=== PATIENT | female | born 1950 | race Caucasian/White ===

== ENCOUNTER 2016-09-08 13:06 | Emergency (ER) | payer MEDICARE ==
--- NOTE | 2016-09-08 13:49 | ERPHSYRPT ---
- History of Present Illness Time Seen by Provider: 09/08/16 13:44 Source: patient Exam Limitations: no limitations Patient Subjective Stated Complaint: pt co pain to right wrist for 3 days, pt denies any injury to wrist, has taken tylenol, she states she is on her computer a lot. is on computer for 2-3 hours a week Triage Nursing Assessment: pt walked in, alert and in no distress, resp easy, no swelling to right wrist, able to move wrist and fingers well, no swelling Physician History: The patient is a 65-year-old female who is right-handed complaining of right wrist discomfort for about one week. She is unsure she fell a week ago. She uses her computer a lot. She denies numbness or tingling. Occurred: last week Method of Injury: unknown Quality: aching Severity of Pain-Max: mild Severity of Pain-Current: mild Extremities Pain Location: wrist: right Modifying Factors: Improves With: pain medication Associated Symptoms: none Allergies/Adverse Reactions: Sulfa (Sulfonamide Antibiotics) Allergy (Verified 09/08/16 13:21) Home Medications: Aspirin [Aspir-Low] 81 mg DAILY 09/08/16 [History] Atenolol 50 mg [Tenormin 50 mg] 50 mg DAILY 09/08/16 [History] Lisinopril 5 mg DAILY 09/08/16 [History] Potassium Chloride 20 Meq [Klor-Con 20 MEQ] 20 meq DAILY 09/08/16 [History] Hx Influenza Vaccination/Date Given: No Hx Pneumococcal Vaccination/Date Given: No Immunizations Up to Date: Yes - Review of Systems Constitutional: No Fever, No Chills Eyes: No Symptoms Ears, Nose, & Throat: No Symptoms Respiratory: No Cough, No Dyspnea Cardiac: No Chest Pain, No Edema, No Syncope Abdominal/Gastrointestinal: No Abdominal Pain, No Nausea, No Vomiting, No Diarrhea Genitourinary Symptoms: No Dysuria Musculoskeletal: Joint Pain Skin: No Rash Neurological: No Dizziness, No Focal Weakness, No Sensory Changes Psychological: No Symptoms Endocrine: No Symptoms Hematologic/Lymphatic: No Symptoms Immunological/Allergic: No Symptoms All Other Systems: Reviewed and Negative - Past Medical History Pertinent Past Medical History: Yes Cardiac History: Congenital Heart Disease, Hypertension Respiratory History: Bronchitis, COPD Endocrine Medical History: Diabetes Type II - Past Surgical History Past Surgical History: Yes Gastrointestinal: Cholecystectomy Female Surgical History: Hysterectomy Other Surgical History: syst removed from back - Social History Smoking Status: Current every day smoker Exposure to second hand smoke: Yes Drug Use: none Patient Lives Alone: No - Female History Hx Last Menstrual Period: post - Nursing Vital Signs Nursing Vital Signs: Initial Vital Signs Temperature 97.3 F Temperature Source Oral Pulse Rate 72 Respiratory Rate 16 Blood Pressure [Left Arm] 130/77 Pain Intensity 8 - Physical Exam General Appearance: alert Eyes, Ears, Nose, Throat Exam: moist mucous membranes Neck Exam: non-tender, supple Cardiovascular/Respiratory Exam: chest non-tender, normal breath sounds, regular rate/rhythm, no respiratory distress Abdominal Exam: non-tender, No guarding Back Exam: normal inspection, No vertebral tenderness Shoulder Exam: normal inspection Elbow/Forearm Exam: normal inspection, limited ROM, soft tissue tenderness Hand Exam: normal inspection Neuro/Tendon Exam: normal sensation, normal motor functions Mental Status Exam: alert, oriented x 3, cooperative Skin Exam: normal color, warm, dry SpO2 Interpretation: normal SpO2: 97 Oxygen Delivery: Room Air - Radiology Exams Right Wrist X-ray Interpretation: Teleradiologist Report (rotatory subluxed scaphoid per Dr Simmons.) Ordered Tests: Active Orders 24 hr Category Date Time Status WRIST (MIN 3 VIEWS) Stat Exams 09/08/16 13:25 Completed - Progress Progress: unchanged Counseled pt/family regarding: need for follow-up, rad results - Departure Time of Disposition: 14:12 Departure Disposition: Home Clinical Impression: Rotary subluxation of scaphoid Condition: Stable Critical Care Time: No Additional Instructions: You have a possible injury to a ligament in your right wrist. Wear the [place] wrap and follow up with your PMD in 2 to 3 days. Take naproxen 500 mg twice a day as needed. Prescriptions: Naproxen 500 mg PO BID PRN #30 tablet.
--- NOTE | 2016-09-08 13:52 | XRAY ---
Indication: Pain for 3 days. No known injury. Comparison: None 3 views of the right wrist demonstrates slight widened scapholunate articulation commonly seen with rotatory subluxed scaphoid. No other bony, articular, or soft tissue abnormalities.
[2016-09-08 14:32] VITALS: BP 115/63; PULSE 68; O2SAT 98
== END 2016-09-08 14:32 | disposition home or self-care (01) ==
LOC: ED 13:06
DX: S63.091A Other subluxation of right wrist and hand, initial encounter (principal)
CPT/HCPCS: 73110; 99283

== ENCOUNTER 2020-12-18 21:16 | Emergency (ER) | payer MEDICARE ==
[2020-12-18 21:58] LABS: Absolute Neutrophil Ct (ANC) 6.68 (1.4-6.9); BASOPHIL % 0.2 % (0.0-0.4); Basophil (Absolute #) 0.02 (0-0.4); Eosinophil % 2.9 % (0.00-5.0); Hemoglobin 14.2 gm/dl (12.0-16.0); Lymphocyte (Absolute #) 2.51 (1.0-4.6); Lymphocytes % 24.4 % (24.0-44.0); Mean Cell Volume 93.4 fl (78-100); Mean Corpuscular Hemoglobin 29.5 pg (26-32); Mean Corpuscular Hgb Concent. 31.6 g/dl (32-36); Mean Platelet Volume 12.2 fl (7.5-11.0); Monocyte (Absolute #) 0.79 (0.0-1.3); Monocytes % 7.7 % (0.0-12.0); Neutrophil % 64.8 % (36.0-66.0); Platelet Count 170 K/mm3 (150-450); Red Blood Count 4.82 M/mm3 (4.1-5.4); Red Cell Distribution Width 12.7 % (11.5-14.0); White Blood Count 10.3 K/mm3 (4.0-10.5)
[2020-12-18 22:10] LABS: Appearance SLIGHTLY CLOUDY (CLEAR); Bacteria RARE /HPF (NEGATIVE); Bilirubin NEGATIVE (NEGATIVE); Blood NEGATIVE Ery/ul (0-5); Glucose NEGATIVE (NEGATIVE); Ketones NEGATIVE (NEGATIVE); Leukocyte Esterase NEGATIVE (NEGATIVE); Nitrite NEGATIVE (NEGATIVE); Protein,Urine Dip NEGATIVE (Negative); RBC 0-2 /HPF (0-2); Specific Gravity 1.018 (1.005-1.025); Urobilinogen 4 mg/dL (0-1)
[2020-12-18 22:38] LABS: ALBUMIN 4.7 g/dL (3.5-5.0); ALKALINE PHOSPHATASE 110 U/L (38-126); ANION GAP 11.8 MEQ/L (5-15); BLOOD UREA NITROGEN 21 mg/dL (7-17); CHLORIDE 100 mmol/L (98-107); Calcium 9.5 mg/dL (8.4-10.2); Carbon Dioxide 31 mmol/L (22-30); Creatinine 1 0.58 mg/dL (0.52-1.04); EST GLOMERULAR FILTRATION RATE > 60.0 ML/MIN; Glucose 108 mg/dL (74-106); Potassium 3.6 mmol/L (3.5-5.1); SGOT/AST 33 U/L (14-36); SGPT/ALT 17 U/L (0-35); SODIUM 139 mmol/L (137-145); Total Protein 7.4 g/dL (6.3-8.2)
[2020-12-18 23:21] VITALS: BP 173/61; PULSE 74; O2SAT 99
--- NOTE | 2020-12-18 23:28 | ERPHSYRPT ---
- History of Present Illness Time Seen by Provider: 12/18/20 21:40 Historian: patient Exam Limitations: no limitations Patient Subjective Stated Complaint: pt c/o abd discomfort, states, "my abd on left side is distended and I feel like I have a heartbeat in my belly". Triage Nursing Assessment: pt c/o abd distention to left side and feels like she has a heartbeat in her belly. Abd is slightly distented on Lt side, soft, nontender, bs present x4 quad. Pt had BM earlier today and finished another one around 9pm tonight. Physician History: Patient is a 70-year-old female presents to our ED with complaints of distended left-sided abdominal pain. Patient states that it feels like there is a heartbeat in her stomach. Symptoms started this evening after dinner. Patient states that she believes it is a gas from a chili meal she had prior to arrival. Patient denies carey pain. Patient states is more like a pressure sensation. Patient is a smoker. Patient also advised that she has a history of a "heart" aneurysm. Symptoms are mild in intensity. No specific worsening improving factors. Patient denies chest pain. Patient voices no other complaints concerns at this time. Timing/Duration: today Activities at Onset: none Quality: pressure Abdominal Pain Onset Location: LLQ, flank Pain Radiation: no radiation Severity of Pain-Max: moderate Severity of Pain-Current: mild Modifying Factors: Improves With: nothing Associated Symptoms: denies symptoms, No chest pain, No diaphoresis, No diarrhea, No rash, No shortness of breath, No syncope, No testicular pain, No vomiting, No weakness Previous symptoms: no prior history Allergies/Adverse Reactions: nitrofurantoin [From Macrobid] Allergy (Severe, Verified 12/18/20 21:52) Vomiting Sulfa (Sulfonamide Antibiotics) Allergy (Verified 12/18/20 21:51) Home Medications: Aspirin [Aspir-Low] 81 mg PO DAILY 09/08/16 [History] Potassium Chloride 20 Meq [Klor-Con 20 MEQ] 20 meq PO DAILY 09/08/16 [History] lisinopriL [Lisinopril] 5 mg PO DAILY 09/08/16 [History] Amlodipine Besylate 5 mg PO DAILY 12/18/20 [History] Atorvastatin Calcium 40 mg PO DAILY 12/18/20 [History] Clopidogrel Bisulfate 75 mg [PLAVIX 75 MG Tablet] 75 mg PO DAILY 12/18/20 [History] Ergocalciferol (Vitamin D2) [Vitamin D2] 50,000 unit PO Q7D 12/18/20 [History] Insulin Glargine,Hum.rec.anlog [Touerao Cadyostar] 12 units SQ HS 12/18/20 [History] Insulin Lispro [Humalog Kwikpen U-200] 7 units SQ TID 12/18/20 [History] Hx Tetanus, Diphtheria Vaccination/Date Given: Yes Hx Influenza Vaccination/Date Given: No Hx Pneumococcal Vaccination/Date Given: No Immunizations Up to Date: Yes Travel Risk - International Travel Have you traveled outside of the country in past 3 weeks: No - Coronavirus Screening Are you exhibiting any of the following symptoms?: No Close contact with a COVID-19 positive Pt in past 14-21 Days: No - Vaccine Status Have you recieved a Covid-19 vaccination: No - Review of Systems Constitutional: No Symptoms, No Fever, No Chills Eyes: No Symptoms Ears, Nose, & Throat: No Symptoms Respiratory: No Symptoms, No Cough, No Dyspnea Cardiac: No Symptoms, No Chest Pain, No Edema, No Syncope Abdominal/Gastrointestinal: No Symptoms, No Abdominal Pain, No Nausea, No Vomiting, No Diarrhea Genitourinary Symptoms: No Symptoms, No Dysuria Musculoskeletal: No Symptoms, No Back Pain, No Neck Pain Skin: No Symptoms, No Rash Neurological: No Symptoms, No Dizziness, No Focal Weakness, No Sensory Changes Psychological: No Symptoms Endocrine: No Symptoms Hematologic/Lymphatic: No Symptoms Immunological/Allergic: No Symptoms All Other Systems: Reviewed and Negative - Past Medical History Pertinent Past Medical History: Yes Neurological History: No Pertinent History ENT History: No Pertinent History Cardiac History: Congenital Heart Disease, High Cholesterol, Hypertension Respiratory History: Bronchitis, COPD Endocrine Medical History: Diabetes Type II Musculoskeletal History: Arthritis, Osteoporosis GI Medical History: Diverticulitis, Diverticulosis, Gallbladder Disease History: No Pertinent History Psycho-Social History: Anxiety, Attention Deficit Disorder Female Reproductive Disorders: No Pertinent History - Past Surgical History Past Surgical History: Yes Neuro Surgical History: No Pertinent History Cardiac: CABG, Cardiac Catheterization, Valve Replacement, Other Respiratory: No Pertinent History Gastrointestinal: Cholecystectomy Genitourinary: No Pertinent History Female Surgical History: Hysterectomy Other Surgical History: aortic aneurysm. aortic pericardial heart tissue valve implanted on 12/08/17 size 21mm by [employer] Implanted Device Model [id number] serial #[id number] - Social History Smoking Status: Current every day smoker How long have you smoked: 55 yrs Exposure to second hand smoke: Yes Drug Use: none Patient Lives Alone: No - Female History Hx Now: No - Nursing Vital Signs Nursing Vital Signs: Initial Vital Signs Temperature 98.0 F 12/18/20 21:34 Pulse Rate 76 12/18/20 21:34 Respiratory Rate 18 12/18/20 21:34 Blood Pressure 171/69 12/18/20 21:34 O2 Sat by Pulse Oximetry 98 12/18/20 21:34 Pain Scale Pain Intensity 0 - Physical Exam General Appearance: no apparent distress, alert Eye Exam: PERRL/EOMI, eyes nml inspection Ears, Nose, Throat Exam: normal ENT inspection, pharynx normal, moist mucous membranes Neck Exam: normal inspection, non-tender, supple, full range of motion Respiratory Exam: normal breath sounds, lungs clear, No respiratory distress Cardiovascular Exam: regular rate/rhythm, normal heart sounds Gastrointestinal/Abdomen Exam: soft, No tenderness, No mass, No guarding, No pulsatile mass, No rebound, No hernia, No organomegaly Back Exam: normal inspection, normal range of motion, No CVA tenderness, No vertebral tenderness Extremity Exam: normal inspection, normal range of motion, pelvis stable, other (Equal dorsalis pedis pulses bilaterally.) Neurologic Exam: alert, oriented x 3, cooperative, normal mood/affect, nml cereb ellar function, sensation nml, No motor deficits Skin Exam: normal color, warm, dry Lymphatic Exam: No adenopathy SpO2 Interpretation: normal SpO2: 99 O2 Delivery: Room Air - Course Nursing assessment & vital signs reviewed: Yes EKG Interpreted by Me: RATE, Sinus Rhythm, NORMAL AXIS, NORMAL INTERVALS Ordered Tests: Active Orders 24 hr Category Date Time Status EKG-ER Only STAT Care 12/18/20 21:37 Active IV Insertion STAT Care 12/18/20 21:37 Active CBC W DIFF Stat Lab 12/18/20 21:45 Completed CMP Stat Lab 12/18/20 21:45 Completed TROPONIN Q3H Lab 12/18/20 21:45 Received TROPONIN Q3H Lab 06/23/21 00:45 Ordered TROPONIN Q3H Lab 12/19/20 03:45 Ordered TROPONIN Q3H Lab 12/19/20 06:45 Ordered TROPONIN Q3H Lab 12/19/20 09:45 Ordered UA W/RFX UR CULTURE Stat Lab 12/18/20 22:02 Completed Lab/Rad Data: Laboratory Result Diagrams 12/18/20 21:45 12/18/20 21:45 Laboratory Results 12/18/20 12/18/20 12/18/20 Range/Units 22:02 21:45 21:45 WBC 10.3 (4.0-10.5) K/mm3 RBC 4.82 (4.1-5.4) M/mm3 Hgb 14.2 (12.0-16.0) gm/dl Hct 45.0 (35-47) % MCV 93.4 (78-100) fl MCH 29.5 (26-32) pg MCHC 31.6 L (32-36) g/dl RDW 12.7 (11.5-14.0) % Plt Count 170 (150-450) K/mm3 MPV 12.2 H (7.5-11.0) fl Gran % 64.8 (36.0-66.0) % Eos # (Auto) 0.30 (0-0.5) Absolute Lymphs (auto) 2.51 (1.0-4.6) Absolute Monos (auto) 0.79 (0.0-1.3) Lymphocytes % 24.4 (24.0-44.0) % Monocytes % 7.7 (0.0-12.0) % Eosinophils % 2.9 (0.00-5.0) % Basophils % 0.2 (0.0-0.4) % Absolute Granulocytes 6.68 (1.4-6.9) Basophils # 0.02 (0-0.4) Sodium 139 (137-145) mmol/L Potassium 3.6 (3.5-5.1) mmol/L Chloride 100 (98-107) mmol/L Carbon Dioxide 31 H (22-30) mmol/L Anion Gap 11.8 (5-15) MEQ/L BUN 21 H (7-17) mg/dL Creatinine 0.58 (0.52-1.04) mg/dL Estimated GFR > 60.0 ML/MIN Glucose 108 H (74-106) mg/dL Calcium 9.5 (8.4-10.2) mg/dL Total Bilirubin 1.20 (0.2-1.3) mg/dL AST 33 (14-36) U/L ALT 17 (0-35) U/L Alkaline Phosphatase 110 (38-126) U/L Serum Total Protein 7.4 (6.3-8.2) g/dL Albumin 4.7 (3.5-5.0) g/dL Urine Color YELLOW (YELLOW) Urine Appearance SLIGHTLY CLOUDY (CLEAR) Urine pH 6.0 (5-6) Ur Specific [place] 1.018 (1.005-1.025) Urine Protein NEGATIVE (Negative) Urine Ketones NEGATIVE (NEGATIVE) Urine Blood NEGATIVE (0-5) Paul/ul Urine Nitrite NEGATIVE (NEGATIVE) Urine Bilirubin NEGATIVE (NEGATIVE) Urine Urobilinogen 4 (0-1) mg/dL Ur Leukocyte Esterase NEGATIVE (NEGATIVE) Urine WBC (Auto) 6-10 (0-5) /HPF Urine RBC (Auto) 0-2 (0-2) /HPF U Epithel Cells (Auto) NONE (FEW) /HPF Urine Bacteria (Auto) RARE (NEGATIVE) /HPF Urine Culture Reflexed NO (NO) Urine Glucose NEGATIVE (NEGATIVE) mg/dL - Progress Progress: improved Progress Note: Patient refused CAT scan. Patient states her symptoms improved. Patient reassessed. No active pain. Patient refused CAT scan. Patient is of sound mind. Patient is appropriate to make informed and independent medical decisions. Patient understands that leaving AGAINST MEDICAL ADVICE can result in delayed diagnosis, increased risk of morbidity, mortality, short and long-term disability including . In spite of these risks, patient has decided to leave AGAINST MEDICAL ADVICE. Patient understands that she may return to our ED at any point if she reconsiders. Patient agrees to follow-up with her primary care doctor within 48 hours for reevaluation. Patient voices no other complaints or concerns at this time. We will release patient AGAINST MEDICAL ADVICE per their request. 12/18/20 23:31 EKG is normal sinus rhythm. Labs essentially nonremarkable. 12/18/20 23:33 Counseled pt/family regarding: lab results, diagnosis, need for follow-up - Departure Departure Disposition: AMA Clinical Impression: Abdominal pain Condition: Stable Critical Care Time: No Referrals: SARAHI MEMBRENO [Primary Care Provider] - Additional Instructions: Discharge/Care Plan LATRICE HENSLEY was seen on 12/18/20 in the Emergency Room. The patient was counseled regarding Diagnosis,Lab results, Imaging studies, need for follow up and when to return to the Emergency Room. Prescriptions given: Discharge Note I have spoken with the patient and/or caregivers. I have explained the patient's condition, diagnosis and treatment plan based on the information available to me at this time. I have answered the patient's and/or caregiver's questions and addressed any concerns. The patient and/or caregivers have as good understanding of the patient's diagnosis, condition and treatment plan as can be expected at this point. The vital signs have been stable. The patient's condition is stable and appropriate for discharge from the emergency department. The patient will pursue further outpatient evaluation with the primary care phys ician or other designated or consulting physician as outlined in the discharge instructions. The patient and/or caregivers are agreeable to this plan of care and follow-up instructions have been explained in detail. The patient and/or caregivers have received these instruction. The patient/and or caregivers are aware that any significant change in condition or worsening of symptoms should prompt an immediate return to this or the closest emergency department or call 911.
== END 2020-12-18 23:22 | disposition home or self-care (01) ==
LOC: ED 21:16
DX: R10.9 Unspecified abdominal pain (principal)
CPT/HCPCS: 36000; 36415; 80053; 81001; 84484; 85025; 93005; 99284